=== PATIENT | male | born 1945 ===

== ENCOUNTER 2024-09-01 16:24 | Outpatient (REF) | payer OTHER, SELFPAY ==
[2024-09-01 16:45] LABS: Hematocrit 43.8 % (42.0-54.0); Hemoglobin 14.6 g/dL (14.0-18.0); Mean Corpuscular HGB Conc 33.3 g/dL (29.9-35.2); Mean Corpuscular Hemoglobin 32.3 pg (25.9-34.0); Mean Corpuscular Volume 96.9 fL (80.0-94.0); Platelet Count 154 10^3/uL (150-450); Red Blood Count 4.52 10^6/uL (4.70-6.10); Red Cell Distribution Width 14.1 % (11.0-15.0); White Blood Count 18.4 10^3/uL (4.0-11.0)
[2024-09-01 17:16] LABS: Band Neutrophils Absolute 4.4 10^3/uL (0.0-0.3); Lymphocytes Absolute Manual 0.73 10^3/uL (1.20-3.80); Metamyelocytes Absolute Manual 0.18; Monocytes Absolute Manual 1.28 10^3/uL (0.30-0.80); Segmented Neut Absolute Manual 11.77 10^3/uL (1.4-6.5)
== END 2024-09-01 16:25 | disposition home or self-care (01) ==
LOC: LAB 16:24
PROVIDERS: PCP Internal Medicine; Visit Provider Internal Medicine
DX: Z79.899 Other long term (current) drug therapy (principal)
CPT/HCPCS: 36415; 83880; 85007; 85027